=== PATIENT | female | born 1950 | race Two or more races ===

== ENCOUNTER 2019-09-16 13:20 | Emergency (ER) | payer MEDICAID ==
[~2019-09-16] VITALS: Ht 160 cm; Wt 63.5 kg
[2019-09-16 13:23] VITALS: BP 144/70
--- NOTE | 2019-09-16 13:23 | NUR ---
ED Nurse Note: Pt brought in by [facility] from home due to headache x 8 hours. Denies N/V and no reports of head injury. AAO x4, ambulatory with no respiratory distress. ERMD at the bed side.
[2019-09-16] MEDS ORDERED: Acetaminophen 500mg (ES) tab ORAL ONE (13:30)
[2019-09-16] MEDS ORDERED: DiphenhydrAMINE 50mg/ml Inj IVP ONE (13:30)
--- NOTE | 2019-09-16 13:49 | NUR ---
ED Nurse Note: Pt taken to CT and stable.
--- NOTE | 2019-09-16 13:59 | NUR ---
ED Nurse Note: Pt came back from CT in stable condition.
[2019-09-16 14:01] LABS: EOSINOPHILS % (AUTO) 0.4 % (0.0-3.0); HEMATOCRIT 39.4 % (37.0-47.0); HEMOGLOBIN 12.9 G/DL (12.0-16.0); LYMPHOCYTES % (AUTO) 24.4 % (20.0-45.0); MEAN CORPUSCULAR VOLUME 84 FL (80-99); MONOCYTES % (AUTO) 10.2 % (1.0-10.0); NEUTROPHILS % (AUTO) 64.1 % (45.0-75.0); PLATELET COUNT 231 K/UL (150-450); RED BLOOD COUNT 4.67 M/UL (4.20-5.40); RED CELL DISTRIBUTION WIDTH 13.3 % (11.6-14.8); WHITE BLOOD COUNT 5.9 K/UL (4.8-10.8)
--- NOTE | 2019-09-16 14:28 | Emergency Room Report ---
History of Present Illness General Chief Complaint: Head Injury Source: Patient Present Illness HPI 69-year-old female history of hypertension history of recurrent headaches, history of stroke recently treated with aspirin and Plavix discharged from a hospital presents with headache that started 8 hours prior to arrival she feels a pounding sensation in the front of her head not worse in recumbent position not sudden, gradual in onset, no fevers no chills no neck stiffness, severity is moderate, constant patient presents for evaluation Allergies: Coded Allergies: No Known Allergies (Unverified , 09/16/19) Patient History Past Medical History: see triage record Reviewed Nursing Documentation: PMH: Agreed; PSxH: Agreed Nursing Documentation-PMH Past Medical History: No History, Except For Hx Cardiac Problems: No - HLD Hx Hypertension: Yes Review of Systems All Other Systems: negative except mentioned in HPI Physical Exam Vital Signs Date Time Temp Pulse Resp B/P (MAP) Pulse Ox O2 Delivery O2 Flow Rate FiO2 09/16/19 13:13 98.2 67 16 134/72 (92) 98 Room Air Sp02 EP Interpretation: reviewed, normal General Appearance: well appearing, no apparent distress, alert Head: normocephalic, atraumatic Eyes: bilateral eye PERRL, bilateral eye EOMI ENT: uvula midline, moist mucus membranes Neck: supple, thyroid normal, supple/symm/no masses Respiratory: lungs clear, no respiratory distress, no retraction, no accessory muscle use Cardiovascular #1: normal peripheral pulses, regular rate, rhythm, no edema, no gallop, no murmur Gastrointestinal: non tender, soft, no guarding, no rebound Musculoskeletal: normal inspection Neurologic: alert, motor strength/tone normal - Residual right-sided weakness more on right, doctor assistant III-XII nml as tested - Vision right side limited, no facial droop, oriented x3, cerebellar normal - Xeepka-[id number] testing intact, responsive, speech normal, abnormal gait - Patient with a residual right-sided weakness ambulates with a cane at baseline no changes, no pronator Psychiatric: mood/affect normal Skin: no rash, warm/dry Medical Decision Making Diagnostic Impression: Primary Impression: Headache Qualified Codes: R51 - Headache ER Course Based on the patient's history and physical there is very low clinical suspicion for significant intracranial pathology. There are no red flags of DAVE, not sudden in onset, not maximal in onset, no acute neurological findings, no fever with head stiffness. History of headaches yes Low suspicion for subarachnoid hemorrhage, encephalitis, meningitis. Patient with residual deficits on exam, unchanged from previous patient with a stroke 3 years ago Reevaluation 2:50 PM patient feels better wants to go home Patient will follow-up with her primary care doctor as well as neurologist Laboratory Tests Test 09/16/19 13:30 White Blood Count 5.9 K/UL (4.8-10.8) Red Blood Count 4.67 M/UL (4.20-5.40) Hemoglobin 12.9 G/DL (12.0-16.0) Hematocrit 39.4 % (37.0-47.0) Mean Corpuscular Volume 84 FL (80-99) Mean Corpuscular Hemoglobin 27.6 PG (27.0-31.0) Mean Corpuscular Hemoglobin Concent 32.7 G/DL (32.0-36.0) Red Cell Distribution Width 13.3 % (11.6-14.8) Platelet Count 231 K/UL (150-450) Mean Platelet Volume 7.0 FL (6.5-10.1) Neutrophils (%) (Auto) 64.1 % (45.0-75.0) Lymphocytes (%) (Auto) 24.4 % (20.0-45.0) Monocytes (%) (Auto) 10.2 % (1.0-10.0) H Eosinophils (%) (Auto) 0.4 % (0.0-3.0) Basophils (%) (Auto) 1.0 % (0.0-2.0) Prothrombin Time 11.1 SEC (9.30-11.50) Prothrombin Time INR 1.0 (0.9-1.1) Activated Partial Thromboplast Time 28 SEC (23-33) Sodium Level 146 MMOL/L (136-145) H Potassium Level 4.0 MMOL/L (3.5-5.1) Chloride Level 109 MMOL/L (98-107) H Carbon Dioxide Level 23 MMOL/L (21-32) Anion Gap 14 mmol/L (5-15) Blood Urea Nitrogen 8 mg/dL (7-18) Creatinine 1.0 MG/DL (0.55-1.30) Estimate Glomerular Filtration Rate 55.0 mL/min (>60) Glucose Level 109 MG/DL (74-106) H Calcium Level 9.6 MG/DL (8.5-10.1) Total Bilirubin 1.4 MG/DL (0.2-1.0) H Direct Bilirubin 0.2 MG/DL (0.0-0.3) Aspartate Amino Transferase (AST) 16 U/L (15-37) Alanine Aminotransferase (ALT) 24 U/L (12-78) Alkaline Phosphatase 116 U/L (46-116) Total Protein 7.3 G/DL (6.4-8.2) Albumin 4.1 G/DL (3.4-5.0) Globulin 3.2 g/dL Albumin/Globulin Ratio 1.3 (1.0-2.7) CT/MRI/US Diagnostic Results CT/MRI/US Diagnostic Results : Impression Procedure: CT Head no Contrast Indications: Headache for 8 hours Technique: Spiral acquisitions obtained through the brain. Angled axial and coronal 5 x 5 mm slices were reconstructed. Total dose length product 1152 mGycm. CTDI vol(s) 2 3 mGy. Dose reduction achieved using automated exposure control Comparison: None. Findings: There is age-related enlargement of the ventricles and extra axial CSF spaces. There is a left-sided basal ganglia lacunar infarct versus, more likely , a prominent perivascular space. There is mild periventricular deep white matter low-attenuation consistent with chronic microvascular ischemic change. There is less orbits are unremarkable. There is minimal ethmoid sinus disease. The mastoids are clear. The calvarium is intact. Impression: Chronic and age-related changes Left basal ganglia prominent perivascular space versus old lacunar infarct Negative for acute intracranial bleed or mass effect The CT scanner at [facility] is accredited by the [employer] and the scans are performed using protocols designed to limit radiation exposure to as low as reasonably achievable to attain images of sufficient resolution adequate for diagnostic evaluation. Dictated By: Brian Massey MD Electronically Signed By: Brian Massey MD Signed Date/Time 09/16/19 6899 CC: David Low MD Last Vital Signs Date Time Temp Pulse Resp B/P (MAP) Pulse Ox O2 Delivery O2 Flow Rate FiO2 09/16/19 13:23 98.2 68 19 144/70 98 Room Air Disposition: HOME, SELF-CARE Condition: Stable Scripts Riboflavin (RIBOFLAVIN) 100 Mg Tablet 400 MG PO DAILY, #120 TAB Prov: David Low MD 09/16/19 Referrals: [facility] Jasiel Ybarra. [facility] Patient Instructions: General Headache Without Cause, [id number] Additional Instructions: The patient was provided with discharge instructions, notified to follow-up with a primary care doctor and or specialist in the next 24-48 hours, and to return to the ED if they have worsening of their symptoms. Please note that this report is being documented using [employer] technology. This can lead to erroneous entry secondary to incorrect interpretation by the dictating instrument. David Low MD Sep 16, 2019 14:28
[2019-09-16 14:29] LABS: ANION GAP 14 mmol/L (5-15); BLOOD UREA NITROGEN 8 mg/dL (7-18); CALCIUM 9.6 MG/DL (8.5-10.1); CARBON DIOXIDE 23 MMOL/L (21-32); CHLORIDE 109 MMOL/L (98-107); SODIUM 146 MMOL/L (136-145)
[2019-09-16 14:39] LABS: ALANINE AMINOTRANSFERASE 24 U/L (12-78); ALBUMIN 4.1 G/DL (3.4-5.0); ALBUMIN/GLOBULIN RATIO 1.3 (1.0-2.7); ALKALINE PHOSPHATASE 116 U/L (46-116); ASPARTATE AMINO TRANSFERASE 16 U/L (15-37); BILIRUBIN,TOTAL 1.4 MG/DL (0.2-1.0)
--- NOTE | 2019-09-16 14:42 | Diagnostic Imaging Report ---
Indications: Headache for 8 hours Technique: Spiral acquisitions obtained through the brain. Angled axial and coronal 5 x 5 mm slices were reconstructed. Total dose length product 1152 mGycm. CTDI vol(s) 2 3 mGy. Dose reduction achieved using automated exposure control Comparison: None. Findings: There is age-related enlargement of the ventricles and extra axial CSF spaces. There is a left-sided basal ganglia lacunar infarct versus, more likely, a prominent perivascular space. There is mild periventricular deep white matter low-attenuation consistent with chronic microvascular ischemic change. There is less orbits are unremarkable. There is minimal ethmoid sinus disease. The mastoids are clear. The calvarium is intact. Impression: Chronic and age-related changes Left basal ganglia prominent perivascular space versus old lacunar infarct Negative for acute intracranial bleed or mass effect The CT scanner at [facility] is accredited by the [employer] and the scans are performed using protocols designed to limit radiation exposure to as low as reasonably achievable to attain images of sufficient resolution adequate for diagnostic evaluation.
[2019-09-16 14:44] LABS: BILIRUBIN,DIRECT 0.2 MG/DL (0.0-0.3)
[2019-09-16] MEDS ORDERED: RIBOFLAVIN100 MG PO (14:52)
[2019-09-16 15:20] VITALS: BP 138/76
[2019-09-16 15:46] VITALS: BP 132/83
--- NOTE | 2019-09-16 15:46 | NUR ---
ER DISCHARGE NOTE: Patient is cleared to be discharged per ERMD, pt is aox4, on room air, with stable vital signs. pt was given dc and prescription instructions, pt was able to verbalize understanding, pt id band and iv site removed without complications. pt is able to ambulate. pt took all belongings and left with her . taxi voucher provided.
== END 2019-09-16 15:46 | disposition home or self-care (01) ==
LOC: EDBD 13:20 → EMR 14:58
DX: R51 Headache (principal); I10 Essential (primary) hypertension; E78.5 Hyperlipidemia, unspecified; Z86.73 Personal history of transient ischemic attack (TIA), and cerebral infarction without residual deficits
CPT/HCPCS: 36415; 70450; 80053; 82248; 85025; 85610; 85730; 96365; 96375; J0780; J1200; J7030; Z7502; 99284